=== PATIENT | female | born 1950 | race Caucasian/White ===

== ENCOUNTER → 2018-12-04 | Outpatient (CLI) | payer MEDICARE, OTHER ==
[2018-12-04 11:11] LABS: Source, Urine Clean Catch
[2018-12-04 11:19] LABS: Appearance, Urine Hazy (Clear); Bilirubin, Urine Neg (Neg); Blood, Urine Neg (Neg); Color, Urine Yellow (P-Yellow); Glucose Qualitative, Urine Neg (Neg); Ketones, Urine Neg (Neg); Leukocyte Esterase, Urine 3+ (Neg); Nitrite, Urine Neg (Neg); Protein, Urine Neg (Neg); Urobilinogen, Urine NORM (Normal)
[2018-12-04 11:35] LABS: Bacteria Mod /hpf; Calcium Oxalate Crystals Mod /hpf; Red Blood Cells, Urine 0-2 /hpf (0-2); Squamous Epithelial Cells Few /hpf (Few)
== END ==
LOC: LAB SHORT 03:50 → LAB 03:50
PROVIDERS: Physician Assistant Medical
DX: N39.0 Urinary tract infection, site not specified (principal)
CPT/HCPCS: 81001; 87086

== ENCOUNTER → 2019-01-08 | Outpatient (CLI) | payer MEDICARE, OTHER ==
[2019-01-08 20:06] LABS: Source, Urine Clean Catch
[2019-01-08 20:29] LABS: Bilirubin, Urine Neg (Neg); Blood, Urine 3+ (Neg); Glucose Qualitative, Urine Neg (Neg); Ketones, Urine Neg (Neg); Leukocyte Esterase, Urine 3+ (Neg); Nitrite, Urine Neg (Neg); Protein, Urine Neg (Neg); Urobilinogen, Urine NORM (Normal)
[2019-01-08 20:59] LABS: Appearance, Urine Hazy (Clear); Color, Urine Yellow (P-Yellow)
[2019-01-08 21:00] LABS: Bacteria Few /hpf; Red Blood Cells, Urine 0-2 /hpf (0-2); Squamous Epithelial Cells Few /hpf (Few); White Blood Cells, Urine TNTC /hpf (0-5)
== END ==
LOC: LAB 16:35 → LAB SHORT 16:35
PROVIDERS: Physician Assistant Medical
DX: N39.0 Urinary tract infection, site not specified (principal)
CPT/HCPCS: 81001; 87086

== ENCOUNTER 2021-01-05 12:26 | Inpatient (IN) | payer MEDICARE, OTHER ==
[~2021-01-05] VITALS: Ht 167.6 cm; Wt 79.6 kg
[2021-01-05 13:12] LABS: BASOPHILS ABSOLUTE AUTO 0.05 K/mm3 (0.00-0.23); BASOPHILS PERCENT AUTO 0 % (0-2); EOSINOPHILS ABSOLUTE AUTO 0.01 K/mm3 (0.00-0.68); EOSINOPHILS PERCENT AUTO 0 % (0-6); Hematocrit 29.9 % (33.0-51.0); Hemoglobin 9.7 g/dL (11.5-16.0); IMMATURE GRAN ABSOLUTE AUTO 0.23 K/mm3 (0.00-0.10); IMMATURE GRAN PERCENT AUTO 1 % (0-1); LYMPHOCYTES PERCENT AUTO 9 % (21-46); MONOCYTES ABSOLUTE AUTO 1.41 K/mm3 (0.16-1.47); MONOCYTES PERCENT AUTO 9 % (4-13); Mean Corpuscular HGB 29.6 pg (26.0-34.0); Mean Corpuscular HGB Conc 32.4 g/dL (31.5-36.5); Mean Corpuscular Volume 91 fL (80-100); NEUTROPHILS ABSOLUTE AUTO 13.06 K/mm3 (1.96-9.15); NEUTROPHILS PERCENT AUTO 80 % (41-73); RDW Coefficient Variation 12.3 % (11.7-14.2); RDW Standard Deviation 41.4 fL (35.1-46.3); Red Blood Cell Count 3.28 M/mm3 (3.80-5.20); White Blood Cell Count 16.26 K/mm3 (4.00-11.30)
[2021-01-05 13:15] LABS: Mean Platelet Volume 9.1 fL (9.1-12.4); Platelet Count 361 K/mm3 (150-400)
[2021-01-05 13:16] LABS: Alanine Aminotransfer (ALT/SGP 26 U/L (12-78); Albumin, Blood 2.4 g/dL (3.4-5.0); Albumin/Globulin Ratio 0.5 (0.8-1.8); Alk Phos 104 U/L (50-136); Anion Gap 6 mmol/L (6-16); Aspartate Aminotrans (AST/SGOT 24 U/L (12-37); Bilirubin, Total 0.4 mg/dL (0.1-1.0); Blood Urea Nitrogen 12 mg/dL (8-24); Bun/Creatinine Ratio 17.9 (12.0-20.0); CO2, Blood 23 mmol/L (21-32); CPK Creatine Kinase 69 U/L (26-193); Calcium, Blood 8.9 mg/dL (8.5-10.1); Chloride, Blood 113 mmol/L (98-108); Creatinine, Blood 0.67 mg/dL (0.40-1.00); Globulin, Blood 5.1 g/dL (2.2-4.0); Glomerular Filtration Rate >60 (60-); Glucose, Blood 126 mg/dL (70-99); Potassium, Blood 3.3 mmol/L (3.5-5.5); Sodium, Blood 142 mmol/L (136-145); Total Protein, Blood 7.5 g/dL (6.4-8.2); Troponin I <0.015 ng/mL (0.000-0.040)
[2021-01-05 14:11] LABS: Influenza A, PCR Negative (NEGATIVE); Influenza B, PCR Negative (NEGATIVE); Resp Syncytial Virus, PCR Negative (NEGATIVE); SARS-Cov-2 (COVID-19) PCR, MMC Negative (NEGATIVE)
[2021-01-05 14:32] LABS: Source, Urine Catheter
[2021-01-05 15:00] LABS: Appearance, Urine Turbid (Clear); Color, Urine Amber (P-Yellow)
[2021-01-05 15:01] LABS: Bacteria Many /hpf
[2021-01-05 15:04] LABS: Squamous Epithelial Cells Rare /hpf (Few); White Blood Cells, Urine TNTC /hpf (0-5)
[2021-01-05] MEDS ORDERED: Aspir 8181 MG PO (16:27)
[2021-01-05] MEDS ORDERED: OMEP20ER PO (16:27)
[2021-01-05] MEDS ORDERED: Prozac20 MG PO (16:28)
[2021-01-05] MEDS ORDERED: DONE5 PO (16:28)
[2021-01-05] MEDS ORDERED: QUET100 PO (16:29)
[2021-01-05] MEDS ORDERED: CLON.5 PO (16:29)
[2021-01-05] MEDS ORDERED: MELA3 PO (16:32)
[2021-01-05] MEDS ORDERED: QUET200 PO (16:32)
[2021-01-05] MEDS ORDERED: ATOR40TA PO (16:32)
[2021-01-05] MEDS ORDERED: OLAN10 PO (16:33)
[2021-01-05 17:03] LABS: Prolactin 33.3 ng/mL (2.74-19.64)
[2021-01-05 17:38] LABS: Candida species (DNA Probe) Negative (NEGATIVE); G. vaginalis (DNA Probe) Negative (NEGATIVE); T. vaginalis (DNA Probe) Negative (NEGATIVE)
--- NOTE | 2021-01-05 18:30 | NUR ---
SUMMARY PT ARRIVED FROM THE ER VIA [facility], PT FROM [facility], HAS DEMENTIA, DOES NOT FOLLOW COMMANDS, SPEECH IS NONSENSICAL, PT'S R INNER THIGH AND LABIA IS RED, HARD, AND WARM TO THE TOUCH, SURGERY CONSULT, PT NPO AFTER MIDNIGHT, POSSIBLE I AND D TOMORROW, VSS, WILL CONT TO MONITOR
[2021-01-06 05:58] LABS: BASOPHILS ABSOLUTE AUTO 0.04 K/mm3 (0.00-0.23); BASOPHILS PERCENT AUTO 0 % (0-2); EOSINOPHILS ABSOLUTE AUTO 0.02 K/mm3 (0.00-0.68); EOSINOPHILS PERCENT AUTO 0 % (0-6); IMMATURE GRAN ABSOLUTE AUTO 0.16 K/mm3 (0.00-0.10); IMMATURE GRAN PERCENT AUTO 1 % (0-1); LYMPHOCYTES ABSOLUTE AUTO 1.74 K/mm3 (0.84-5.20); LYMPHOCYTES PERCENT AUTO 10 % (21-46); MONOCYTES ABSOLUTE AUTO 1.32 K/mm3 (0.16-1.47); MONOCYTES PERCENT AUTO 8 % (4-13); Mean Corpuscular HGB 28.8 pg (26.0-34.0); Mean Corpuscular HGB Conc 32.1 g/dL (31.5-36.5); Mean Corpuscular Volume 90 fL (80-100); NEUTROPHILS ABSOLUTE AUTO 13.47 K/mm3 (1.96-9.15); NEUTROPHILS PERCENT AUTO 80 % (41-73); Platelet Count 404 K/mm3 (150-400); RDW Coefficient Variation 12.5 % (11.7-14.2); RDW Standard Deviation 40.8 fL (35.1-46.3); Red Blood Cell Count 3.12 M/mm3 (3.80-5.20); White Blood Cell Count 16.75 K/mm3 (4.00-11.30)
[2021-01-06 06:24] LABS: Alanine Aminotransfer (ALT/SGP 23 U/L (12-78); Albumin, Blood 2.1 g/dL (3.4-5.0); Albumin/Globulin Ratio 0.4 (0.8-1.8); Alk Phos 89 U/L (50-136); Anion Gap 7 mmol/L (6-16); Aspartate Aminotrans (AST/SGOT 27 U/L (12-37); Bilirubin, Total 0.5 mg/dL (0.1-1.0); Blood Urea Nitrogen 10 mg/dL (8-24); Bun/Creatinine Ratio 14.5 (12.0-20.0); CO2, Blood 22 mmol/L (21-32); Calcium, Blood 8.7 mg/dL (8.5-10.1); Chloride, Blood 114 mmol/L (98-108); Creatinine, Blood 0.69 mg/dL (0.40-1.00); Globulin, Blood 4.7 g/dL (2.2-4.0); Glomerular Filtration Rate >60 (60-); Glucose, Blood 115 mg/dL (70-99); Potassium, Blood 3.4 mmol/L (3.5-5.5); Sodium, Blood 143 mmol/L (136-145); Total Protein, Blood 6.8 g/dL (6.4-8.2)
--- NOTE | 2021-01-06 07:23 | NUR ---
SANITATION WORKER SUMMARY Cesilia was awake most of the night crying loudly. She was only indicative of discomfort during gentle brief changes. She has been NPO since before 2400 as she would turn away from nutrition or fluid when offered. Awaiting I&D later today.
--- NOTE | 2021-01-06 12:08 | NUR ---
NURSES NOTE PATIENT LEAVING FLOOR TO SURGERY
--- NOTE | 2021-01-06 13:09 | NUR ---
PT WAS HERE TO DAYSURGERY BY [facility]. PT AWAKE, MOANING OFF AND ON. PT REPORTED FROM OTHER STAFF TO BE NPO, AND THAT LOVENOX WAS HELD TODAY. PT LS CLEAR. PT WITH HX OF DEMENTIA. FLOOR STAFF REPORTED THAT PT HAS NOONE TO SIGN FOR HER, PT HAS 2 MD SIGN. TRUDY AREA SHAVED AND WIPED WITH OTHER RN PRESENT.
--- NOTE | 2021-01-06 13:10 | NUR ---
01/06/21 1310 Ruben Hernandez [address] 0900
--- NOTE | 2021-01-06 14:59 | NUR ---
NURSE NOTE PT RETURNED FROM SURGERY RESTING QUIETLY. INCISION SITE HAS NAYLA DRAIN WITH BLOODY DRAINAGE PRESENT ON GAUZE DRESSING. TELE MONITOR HOOKED BACK UP.
--- NOTE | 2021-01-06 17:30 | NUR ---
SHIFT SUMMARY PATIENT IS CURRENTLY RESTING AFTER RETURNING FROM SURGERY. PRIOR TO GOING TO SURGERY PATIENT WAS UNABLE TO ANSWER QUESTIONS OR FOLLOW COMMANDS AND WOULD CRY OUT FREQUENTLY. ONLY LEFT EYE WOULD OPEN. PT HAS BEEN NPO SINCE MIDNIGHT AND WENT TO SURGERY TODAY FOR RIGHT GROIN I&D. NAYLA DRAIN AND GAUZE/ABD DRESSING IN PLACE. PATIENT O2 SAT AT 89% UPON RETURNING FROM SURGERY. PLACED 2L NC. BOARD WINDER IS IN PLACE. VS STABLE. WILL CONTINUE TO MONITOR.
[2021-01-07 04:10] LABS: CHLAMYDIA TRACHOMATIS, NAA Negative (Negative)
--- NOTE | 2021-01-07 04:12 | NUR ---
PATIENT JUST WOKE UP FROM SURGERY. UNABLE TO ANSWER PLACE, MONTH, OR YEAR. CONFUSED. HX OF DEMENTIA. EYES OPEN AND ON 2L O2 NC. NS INFUSING AT 125mL/HR. BED ALARM. WCTM.
--- NOTE | 2021-01-07 04:16 | NUR ---
SHIFT SUMMARY PATIENT LETHARGIC THROUGHOUT SHIFT FROM SURGERY. PO MEDICATION HELD. PATIENT NOW WAKING UP AND UNABLE TO ANSWER PLACE, DATE, MONTH, OR YEAR. HX DEMENTIA. PIVS REMAIN INTACT. NS INFUSING AT 125mL/HR. LICENSING REPRESENTATIVE REPORTS SB 56. ON 2L O2 NC AND RA BASELINE. VSS/AFEBRILE. NO S/SX OF PAIN, SOB, AND N/V. NAYLA DRAIN AND GAUZE/ABD DRESSING IN PLACE. CALL LIGHT IN REACH. BED IN LOWEST POSITION AND ALARM ACTIVATED. WILL CONTINUE TO MONITOR UNTIL DAY SHIFT NURSE ASSUMES CARE.
[2021-01-07 05:22] LABS: BASOPHILS ABSOLUTE AUTO 0.02 K/mm3 (0.00-0.23); BASOPHILS PERCENT AUTO 0 % (0-2); EOSINOPHILS PERCENT AUTO 0 % (0-6); Hematocrit 29.2 % (33.0-51.0); Hemoglobin 9.7 g/dL (11.5-16.0); IMMATURE GRAN ABSOLUTE AUTO 0.17 K/mm3 (0.00-0.10); IMMATURE GRAN PERCENT AUTO 1 % (0-1); LYMPHOCYTES ABSOLUTE AUTO 1.08 K/mm3 (0.84-5.20); LYMPHOCYTES PERCENT AUTO 6 % (21-46); MONOCYTES ABSOLUTE AUTO 0.45 K/mm3 (0.16-1.47); MONOCYTES PERCENT AUTO 3 % (4-13); Mean Corpuscular HGB 29.2 pg (26.0-34.0); Mean Corpuscular HGB Conc 33.2 g/dL (31.5-36.5); Mean Corpuscular Volume 88 fL (80-100); Mean Platelet Volume 9.2 fL (9.1-12.4); NEUTROPHILS ABSOLUTE AUTO 15.27 K/mm3 (1.96-9.15); NEUTROPHILS PERCENT AUTO 90 % (41-73); Platelet Count 374 K/mm3 (150-400); RDW Coefficient Variation 12.2 % (11.7-14.2); RDW Standard Deviation 39.5 fL (35.1-46.3); Red Blood Cell Count 3.32 M/mm3 (3.80-5.20); White Blood Cell Count 16.99 K/mm3 (4.00-11.30)
[2021-01-07 05:45] LABS: Anion Gap 8 mmol/L (6-16); Blood Urea Nitrogen 16 mg/dL (8-24); Bun/Creatinine Ratio 27.5 (12.0-20.0); CO2, Blood 19 mmol/L (21-32); Calcium, Blood 8.5 mg/dL (8.5-10.1); Chloride, Blood 117 mmol/L (98-108); Creatinine, Blood 0.58 mg/dL (0.40-1.00); Glomerular Filtration Rate >60 (60-); Glucose, Blood 130 mg/dL (70-99); Potassium, Blood 3.9 mmol/L (3.5-5.5); Sodium, Blood 144 mmol/L (136-145)
--- NOTE | 2021-01-07 18:17 | NUR ---
PT HAVING DIFFICULTY CHEWING REGULAR DIET FOOD ITEMS. CHANGED DIET TO A [facility] SOFT BITE SIZE DIET FOR EASE OF CHEWING. PT DOES NOT HAVE DENTURES. PT SWALLOWING WITHOUT DIFFICULTY.
--- NOTE | 2021-01-07 18:45 | NUR ---
SHIFT SUMMARY: PT ALERT T/OUT DAY, BUT UNABLE TO ASSESS ORIENTATION. PT DOES NOT RESPOND TO QUESTIONS APPROP. PT HAVING PAIN WITH POSITIONING AND ATTENDS CHANGES. PT GIVEN IV FENTANYL FOR HER PAIN. ALSO STARTED PO TYLENOL AND ADVIL TO ATTEMPT TO GET PAIN UNDER CONTROL ITH PO MEDICATIONS. R GROIN I&D SITE IS DRAINING SEROSANGUINEOUS DRAINAGE. NO SIGNS OF INFECTION OTHER THAN FOUL SMELLING DRAINAGE. SUTURES AND DRAIN TUBE IN PLACE. PT EATING WELL AND TAKING MEDICATIONS WELL.
--- NOTE | 2021-01-08 04:32 | NUR ---
SHIFT SUMMARY PATIENT HAD NO ACUTE CHANGES OBSERVED. ALERT TO SELF. TAKES MEDS CRUSHED IN APPLESAUCE. BEDREST AND ON ROOM AIR. PIV REMAINS INTACT. NS INFUSING AT 125mL/HR. DENIES PAIN, SOB, AND N/V. VSS/AFEBRILE. NAYLA DRAIN AND SUTURES IN PLACE. NO CRYING EVENTS THIS SHIFT. PATIENT SLEPT MOST OF THE SHIFT. CALL LIGHT IN REACH. BED IN LOWEST POSITION AND ALARM ACTIVATED. WILL CONTINUE TO MONITOR UNTIL DAY SHIFT NURSE ASSUMES CARE.
[2021-01-08 05:03] LABS: BASOPHILS ABSOLUTE AUTO 0.02 K/mm3 (0.00-0.23); BASOPHILS PERCENT AUTO 0 % (0-2); EOSINOPHILS ABSOLUTE AUTO 0.03 K/mm3 (0.00-0.68); EOSINOPHILS PERCENT AUTO 0 % (0-6); Hemoglobin 8.3 g/dL (11.5-16.0); IMMATURE GRAN ABSOLUTE AUTO 0.11 K/mm3 (0.00-0.10); IMMATURE GRAN PERCENT AUTO 1 % (0-1); LYMPHOCYTES ABSOLUTE AUTO 1.54 K/mm3 (0.84-5.20); LYMPHOCYTES PERCENT AUTO 17 % (21-46); MONOCYTES ABSOLUTE AUTO 0.43 K/mm3 (0.16-1.47); MONOCYTES PERCENT AUTO 5 % (4-13); Mean Corpuscular HGB 29.5 pg (26.0-34.0); Mean Corpuscular HGB Conc 31.9 g/dL (31.5-36.5); Mean Platelet Volume 9.1 fL (9.1-12.4); NEUTROPHILS ABSOLUTE AUTO 7.03 K/mm3 (1.96-9.15); NEUTROPHILS PERCENT AUTO 77 % (41-73); Platelet Count 348 K/mm3 (150-400); RDW Coefficient Variation 12.4 % (11.7-14.2); RDW Standard Deviation 42.3 fL (35.1-46.3); Red Blood Cell Count 2.81 M/mm3 (3.80-5.20); White Blood Cell Count 9.16 K/mm3 (4.00-11.30)
[2021-01-08 05:04] LABS: Mean Corpuscular Volume 93 fL (80-100)
[2021-01-08 06:20] LABS: Anion Gap 5 mmol/L (6-16); Blood Urea Nitrogen 25 mg/dL (8-24); Bun/Creatinine Ratio 37.1 (12.0-20.0); CO2, Blood 20 mmol/L (21-32); Calcium, Blood 8.2 mg/dL (8.5-10.1); Chloride, Blood 120 mmol/L (98-108); Creatinine, Blood 0.67 mg/dL (0.40-1.00); Glomerular Filtration Rate >60 (60-); Glucose, Blood 102 mg/dL (70-99); Potassium, Blood 3.5 mmol/L (3.5-5.5); Sodium, Blood 145 mmol/L (136-145)
--- NOTE | 2021-01-08 13:41 | NUR ---
R GROIN FIRMNESS. SPOKE WITH DR. ANDRADE ABOUT THE FIRMNESS FELT AROUND PTS R GROIN. NAYLA DRAIN IS STILL DRAINING. FIRMNESS EXTENDS TO THE R SIDE OF THE PUBIC AREA. PT C/O PAIN WHEN IT IS TOUCHED. DR. ANDRADE REORDERED FLAGYL IV. NOTIFICATION OF UNABILITY TO CRUSH EC ASPRIN WAS RELAYED ALSO AND BABY ASPRIN WAS ORDERED IN REPLACEMENT.
--- NOTE | 2021-01-08 17:38 | NUR ---
Pt yelling out and painfull. period of confussion and delirium. Review of pt with nursing. Will contact care managers. pt did not have any paperwork from [facility]. Need to find decision maker or guardian for plan of care.
--- NOTE | 2021-01-08 18:13 | NUR ---
SHIFT SUMMARY PT SLEPT MOST OF THE SHIFT. NOON DOSE OF SEROQUEL WAS HELD DUE TO LETHARGY. PT WOKE UP AROUND 1500 AND WAS PLEASANT/HAPPY IN ROOM. ATE & DRANK LITTLE AMOUNTS TODAY. ENSURE WAS ENCOURAGED. AT 1630 PT STARTED CRYING UNCONSOLABLY. DR. ABERNATHY WAS NOTIFIED & A ONE TIME 0.5 DOSE OF ATIVAN WAS ORDERED. PT MEDICATED WITH THIS AND FOR PAIN AND IS NOW RESTING. MODERATE DRAINAGE OUT OF NAYLA DRAIN TODAY. R GROIN CONTINUES TO BE VERY FIRM AND PAINFUL TO PT. DR. ANDRADE AWARE. NO OTHER ACUTE CHANGES IN ASSESSMENT THIS TIME. VS REVIEWED. BED ALARM ON.
--- NOTE | 2021-01-09 04:16 | NUR ---
SHIFT SUMMARY PATIENT HAD NO ACUTE CHANGES OBSERVED. IN BED RESTING, SELF TALKING T/O SHIFT. ALERT TO SELF AND BEDREST. TAKES MEDICATION CRUSHED IN APPLESAUCE. NO CRYING EVENTS. PIV REMAINS INTACT. IV ABX INFUSED. TYLENOL 650 MG GIVEN FOR RS GROIN PAIN. VSS/AFEBRILE. DENIES SOB AND N/V. NAYLA DRAIN AND SUTURES INTACT. CALL LIGHT IN REACH. BED IN LOWEST POSITION AND ALARM ACTIVATED. WILL CONTINUE TO MONITOR UNTIL DAY SHIFT NURSE ASSUMES CARE.
[2021-01-09 05:11] LABS: BASOPHILS ABSOLUTE AUTO 0.04 K/mm3 (0.00-0.23); BASOPHILS PERCENT AUTO 1 % (0-2); EOSINOPHILS ABSOLUTE AUTO 0.21 K/mm3 (0.00-0.68); EOSINOPHILS PERCENT AUTO 3 % (0-6); Hematocrit 25.9 % (33.0-51.0); Hemoglobin 8.5 g/dL (11.5-16.0); IMMATURE GRAN PERCENT AUTO 1 % (0-1); LYMPHOCYTES ABSOLUTE AUTO 1.72 K/mm3 (0.84-5.20); LYMPHOCYTES PERCENT AUTO 22 % (21-46); MONOCYTES ABSOLUTE AUTO 0.49 K/mm3 (0.16-1.47); MONOCYTES PERCENT AUTO 6 % (4-13); Mean Corpuscular HGB 29.2 pg (26.0-34.0); Mean Corpuscular HGB Conc 32.8 g/dL (31.5-36.5); Mean Corpuscular Volume 89 fL (80-100); Mean Platelet Volume 8.9 fL (9.1-12.4); NEUTROPHILS PERCENT AUTO 67 % (41-73); Platelet Count 385 K/mm3 (150-400); RDW Coefficient Variation 12.4 % (11.7-14.2); RDW Standard Deviation 40.4 fL (35.1-46.3); Red Blood Cell Count 2.91 M/mm3 (3.80-5.20); White Blood Cell Count 7.86 K/mm3 (4.00-11.30)
[2021-01-09 05:45] LABS: Alanine Aminotransfer (ALT/SGP 43 U/L (12-78); Albumin, Blood 1.8 g/dL (3.4-5.0); Albumin/Globulin Ratio 0.4 (0.8-1.8); Alk Phos 64 U/L (50-136); Anion Gap 6 mmol/L (6-16); Aspartate Aminotrans (AST/SGOT 36 U/L (12-37); Bilirubin, Total 0.2 mg/dL (0.1-1.0); Blood Urea Nitrogen 20 mg/dL (8-24); Bun/Creatinine Ratio 34.4 (12.0-20.0); CO2, Blood 23 mmol/L (21-32); Calcium, Blood 8.1 mg/dL (8.5-10.1); Chloride, Blood 118 mmol/L (98-108); Creatinine, Blood 0.58 mg/dL (0.40-1.00); Globulin, Blood 4.1 g/dL (2.2-4.0); Glomerular Filtration Rate >60 (60-); Glucose, Blood 88 mg/dL (70-99); Potassium, Blood 3.2 mmol/L (3.5-5.5); Sodium, Blood 147 mmol/L (136-145); Total Protein, Blood 5.9 g/dL (6.4-8.2); Vancomycin, Trough 6.4 ug/mL (5.0-10.0)
[2021-01-09] MEDS ORDERED: BANATROL PLUS1 EAC1 PO (13:17)
[2021-01-09] MEDS ORDERED: BISA10S PR (13:18)
[2021-01-09] MEDS ORDERED: IBUP600 PO (13:18)
[2021-01-09] MEDS ORDERED: AMOCLA875 PO (13:19)
--- NOTE | 2021-01-09 13:45 | NUR ---
REPORT GIVEN TO MONICA [facility]ASPER BANTRYDINORA. PT TO BE TRANSPORTED VIA [facility] AROUND 215
== END 2021-01-09 17:05 | disposition home or self-care (01) | DRG 854 ==
LOC: ER 12:26 → MEDS 16:11 → ENPENDDIS 01-09 12:24 → MEDS 01-09 17:05
PROVIDERS: Emergency Medicine; Pharmacist; Surgery; ADMIT Family Medicine
PROC: 0Y9500Z Drainage of Right Inguinal Region with Drainage Device, Open Approach (ICD-10-PCS; principal; 2021-01-06 12:30)
DX: A41.9 Sepsis, unspecified organism (principal); L02.214 Cutaneous abscess of groin; N30.00 Acute cystitis without hematuria; L03.314 Cellulitis of groin; Z20.822 Contact with and (suspected) exposure to COVID-19; R56.9 Unspecified convulsions; E87.6 Hypokalemia; B95.4 Other streptococcus as the cause of diseases classified elsewhere; F03.90 Unspecified dementia, unspecified severity, without behavioral disturbance, psychotic disturbance, mood disturbance, and anxiety; Z88.5 Allergy status to narcotic agent; Z79.82 Long term (current) use of aspirin; Z79.899 Other long term (current) drug therapy
CPT/HCPCS: 0241U; 36415; 51701; 70450; 71045; 72193; 80048; 80053; 80202; 81001; 82550; 82947; 83605; 83735; 84146; 84484; 85025; 87040; 87070; 87075; 87086; 87205; 87480; 87491; 87510; 87591; 87660; 93005; 93010; 96365; 96375; 99285-25; A9270; J0696; J1100; J1650; J2060; J2405; J2704; J3010; J3370; J3480; J7030; J7050; J7120; Q9967

== ENCOUNTER 2021-01-21 14:50 | Emergency (ER) | payer MEDICARE, OTHER ==
[~2021-01-21] VITALS: Ht 165.1 cm; Wt 77.1 kg
[~2021-01-21 14:50] MED LIST: AMOCLA875 PO; ATOR40TA PO; Aspir 8181 MG PO; BANATROL PLUS1 EAC1 PO; BISA10S PR; CLON.5 PO; DONE5 PO; IBUP600 PO; MELA3 PO; OLAN10 PO; OMEP20ER PO; Prozac20 MG PO; QUET100 PO; QUET200 PO
[2021-01-21 16:12] LABS: BASOPHILS ABSOLUTE AUTO 0.05 K/mm3 (0.00-0.23); IMMATURE GRAN ABSOLUTE AUTO 0.02 K/mm3 (0.00-0.10); IMMATURE GRAN PERCENT AUTO 0 % (0-1); MONOCYTES PERCENT AUTO 10 % (4-13)
[2021-01-21 16:21] LABS: Alanine Aminotransfer (ALT/SGP 38 U/L (12-78); Albumin/Globulin Ratio 0.6 (0.8-1.8); Alk Phos 109 U/L (50-136); Anion Gap 6 mmol/L (6-16); Aspartate Aminotrans (AST/SGOT 44 U/L (12-37); Bilirubin, Total 0.3 mg/dL (0.1-1.0); Blood Urea Nitrogen 14 mg/dL (8-24); Bun/Creatinine Ratio 20.1 (12.0-20.0); CO2, Blood 24 mmol/L (21-32); Calcium, Blood 9.6 mg/dL (8.5-10.1); Chloride, Blood 109 mmol/L (98-108); Globulin, Blood 4.9 g/dL (2.2-4.0); Glomerular Filtration Rate >60 (60-); Glucose, Blood 110 mg/dL (70-99); Potassium, Blood 3.9 mmol/L (3.5-5.5); Sodium, Blood 139 mmol/L (136-145); Total Protein, Blood 7.9 g/dL (6.4-8.2)
[2021-01-21 16:23] LABS: BASOPHILS PERCENT AUTO 1 % (0-2); EOSINOPHILS ABSOLUTE AUTO 0.08 K/mm3 (0.00-0.68); EOSINOPHILS PERCENT AUTO 1 % (0-6); Hematocrit 33.9 % (33.0-51.0); Hemoglobin 11.3 g/dL (11.5-16.0); LYMPHOCYTES PERCENT AUTO 32 % (21-46); MONOCYTES ABSOLUTE AUTO 0.62 K/mm3 (0.16-1.47); Mean Corpuscular HGB Conc 33.3 g/dL (31.5-36.5); Mean Corpuscular Volume 87 fL (80-100); NEUTROPHILS ABSOLUTE AUTO 3.36 K/mm3 (1.96-9.15); NEUTROPHILS PERCENT AUTO 56 % (41-73); RDW Coefficient Variation 13.8 % (11.7-14.2); White Blood Cell Count 6.03 K/mm3 (4.00-11.30)
[2021-01-21 16:27] LABS: Mean Platelet Volume 9.9 fL (9.1-12.4); Platelet Count 318 K/mm3 (150-400)
== END 2021-01-21 17:28 ==
LOC: ER 14:50
PROVIDERS: Physician Assistant
DX: Z48.817 Encounter for surgical aftercare following surgery on the skin and subcutaneous tissue (principal); Z88.5 Allergy status to narcotic agent; Z79.899 Other long term (current) drug therapy; Z79.82 Long term (current) use of aspirin; F03.90 Unspecified dementia, unspecified severity, without behavioral disturbance, psychotic disturbance, mood disturbance, and anxiety
CPT/HCPCS: 36415; 74176; 80053; 83690; 85025; 99284-25

== ENCOUNTER 2021-09-07 14:18 | Emergency (ER) | payer MEDICARE, OTHER ==
[~2021-09-07] VITALS: Ht 165.1 cm; Wt 79.4 kg
[2021-09-07] MEDS ORDERED: ACET325 PO (14:36)
[2021-09-07] MEDS ORDERED: IBUP400 PO (14:38)
[2021-09-07] MEDS ORDERED: BACL10 PO (14:42)
[2021-09-07] MEDS ORDERED: TRAM50 PO (14:43)
== END 2021-09-07 17:55 | disposition home or self-care (01) ==
LOC: ER 14:18
DX: S09.90XA Unspecified injury of head, initial encounter (principal); K21.9 Gastro-esophageal reflux disease without esophagitis; I10 Essential (primary) hypertension; Z88.5 Allergy status to narcotic agent; Z79.82 Long term (current) use of aspirin; Z91.81 History of falling; Z79.899 Other long term (current) drug therapy; W08.XXXA Fall from other furniture, initial encounter
CPT/HCPCS: 70450; 72125

== ENCOUNTER 2022-06-07 11:08 | Inpatient (IN) | payer MEDICARE, OTHER ==
[~2022-06-07] VITALS: Ht 165.1 cm; Wt 68.5 kg
[~2022-06-07 11:08] MED LIST changes: +ACET325 PO; +BACL10 PO; +IBUP400 PO; +TRAM50 PO
[2022-06-07] MEDS ORDERED: FERSU300 PO (11:20)
[2022-06-07] MEDS ORDERED: MIRALAX11910 PO (11:20)
[2022-06-07] MEDS ORDERED: LOPE2C PO (11:23)
[2022-06-07] MEDS ORDERED: DULCOLAX400 MG/5 M PO (11:24)
[2022-06-07 11:53] LABS: BASOPHILS ABSOLUTE AUTO 0.08 K/mm3 (0.00-0.23); BASOPHILS PERCENT AUTO 0 % (0-2); EOSINOPHILS PERCENT AUTO 1 % (0-6); Hematocrit 30.4 % (33.0-51.0); Hemoglobin 10.2 g/dL (11.5-16.0); IMMATURE GRAN ABSOLUTE AUTO 0.21 K/mm3 (0.00-0.10); IMMATURE GRAN PERCENT AUTO 1 % (0-1); LYMPHOCYTES ABSOLUTE AUTO 1.34 K/mm3 (0.84-5.20); LYMPHOCYTES PERCENT AUTO 6 % (21-46); MONOCYTES ABSOLUTE AUTO 1.06 K/mm3 (0.16-1.47); MONOCYTES PERCENT AUTO 5 % (4-13); Mean Corpuscular HGB 29.5 pg (26.0-34.0); Mean Corpuscular HGB Conc 33.6 g/dL (31.5-36.5); Mean Corpuscular Volume 88 fL (80-100); Mean Platelet Volume 8.7 fL (9.1-12.4); NEUTROPHILS ABSOLUTE AUTO 17.88 K/mm3 (1.96-9.15); NEUTROPHILS PERCENT AUTO 86 % (41-73); Platelet Count 369 K/mm3 (150-400); RDW Standard Deviation 38.5 fL (35.1-46.3); Red Blood Cell Count 3.46 M/mm3 (3.80-5.20); White Blood Cell Count 20.87 K/mm3 (4.00-11.30)
[2022-06-07 12:17] LABS: Bun/Creatinine Ratio 29.8 (12.0-20.0); C-REACTIVE PROTEIN, EXT RANGE 12.6 mg/dL (0.000-0.300); Calcium, Blood 9.3 mg/dL (8.5-10.1); Creatinine, Blood 0.77 mg/dL (0.40-1.00); Potassium, Blood 3.5 mmol/L (3.5-5.5)
[2022-06-07 12:49] LABS: Prothrombin Time Results 10.5 Sec (9.7-11.5)
--- NOTE | 2022-06-07 18:11 | NUR ---
PT BROUGHT FROM FLOOR TO DAY SURGERY FOR PROCEDURE.
[2022-06-07] MEDS ORDERED: ASPI81CH PO (18:16)
[2022-06-07] MEDS ORDERED: FERSU90EL PO (18:17)
--- NOTE | 2022-06-07 18:17 | NUR ---
PT ARRIVED TO THE UNIT. SHE HAD A BM AND WAS CLEANED. HER ABCESS RUPTURED AND WAS DRAINING. SHE WAS TAKEN TO THE OR FOR AN I/D
[2022-06-07] MEDS ORDERED: CLON.5 PO (18:19)
--- NOTE | 2022-06-07 18:20 | NUR ---
PT HAS 20G IV IN RIGHT FOREARM THAT FLUSHES WELL AND FLOWS WELL TO GRAVITY.
[2022-06-07] MEDS ORDERED: NYSTATIN15 GM TOP (18:21)
--- NOTE | 2022-06-07 18:23 | NUR ---
PT IS NONVERBAL WITH SEVERE DEMENTIA PER H&P. PT APPEARS TO HAVE INTERMITTENT PAIN THAT COMES AND GOES. PT CHECKLIST COMPLETED BY PHYSICAL APPEARANCE DUE TO PT BEING NONVERBAL.
--- NOTE | 2022-06-07 20:08 | NUR ---
LATE ENTRY: BEFORE TRANSFER TO MEDICAL FLOOR, OPSITE WAS NOTED TO HAVE BLOOD TINGED SATURATED FLUFFS WITH BLOOD CLOTS. REMOVED SATURATED FLUFFS AND NEW STERILE FLUFFS WERE PLACED.
--- NOTE | 2022-06-07 20:38 | NUR ---
NURSE NOTE PT ARRIVED BACK TO ROOM FROM PACU; PT WAS NOT RESPONDING TO VERBAL STIMULI; RESPONSIVE TO PAINFUL STIMULI. STARTING POST OP VITALS; SBP 90. PT ARRIVED WITH 1000 MLS LR INFUSING GRAVITY FEED--THIS MED APPEARS TO HAVE BEEN SCANNED UNDER WRONG ORDER. ADMIN NEW BAG OF LR AT 125MLS HR. PT IS SATURATING VAGINAL WOUND DRESSING WITH DRAINAGE AND URINE; NEW ORDER FOR GAVIN TO KEEP WOUND CLEAN.
[2022-06-07 23:18] LABS: Source, Urine Foley catheter
[2022-06-07 23:20] LABS: Bilirubin, Urine Neg (Neg); Blood, Urine Neg (Neg); Glucose Qualitative, Urine Neg (Neg); Ketones, Urine Neg (Neg); Leukocyte Esterase, Urine Neg (Neg); Nitrite, Urine Neg (Neg); Protein, Urine 1+ (Neg); Specific Gravity, Urine 1.015 (1.003-1.022); Urobilinogen, Urine NORM (Normal)
[2022-06-07 23:33] LABS: Appearance, Urine Clear (Clear); Color, Urine Yellow (P-Yellow)
[2022-06-08 05:42] LABS: BASOPHILS ABSOLUTE AUTO 0.02 K/mm3 (0.00-0.23); BASOPHILS PERCENT AUTO 0 % (0-2); EOSINOPHILS PERCENT AUTO 0 % (0-6); Hematocrit 24.9 % (33.0-51.0); Hemoglobin 8.4 g/dL (11.5-16.0); IMMATURE GRAN ABSOLUTE AUTO 0.19 K/mm3 (0.00-0.10); IMMATURE GRAN PERCENT AUTO 1 % (0-1); LYMPHOCYTES ABSOLUTE AUTO 0.78 K/mm3 (0.84-5.20); LYMPHOCYTES PERCENT AUTO 5 % (21-46); MONOCYTES ABSOLUTE AUTO 0.11 K/mm3 (0.16-1.47); MONOCYTES PERCENT AUTO 1 % (4-13); Mean Corpuscular HGB 29.9 pg (26.0-34.0); Mean Corpuscular HGB Conc 33.7 g/dL (31.5-36.5); Mean Corpuscular Volume 89 fL (80-100); Mean Platelet Volume 8.9 fL (9.1-12.4); NEUTROPHILS ABSOLUTE AUTO 13.96 K/mm3 (1.96-9.15); NEUTROPHILS PERCENT AUTO 93 % (41-73); Platelet Count 340 K/mm3 (150-400); RDW Coefficient Variation 11.9 % (11.7-14.2); Red Blood Cell Count 2.81 M/mm3 (3.80-5.20); White Blood Cell Count 15.06 K/mm3 (4.00-11.30)
[2022-06-08 06:09] LABS: Albumin, Blood 2.3 g/dL (3.4-5.0); Albumin/Globulin Ratio 0.5 (0.8-1.8); Bilirubin, Total 0.2 mg/dL (0.1-1.0); Bun/Creatinine Ratio 24.7 (12.0-20.0); Calcium, Blood 8.8 mg/dL (8.5-10.1); Creatinine, Blood 0.61 mg/dL (0.40-1.00); Globulin, Blood 4.3 g/dL (2.2-4.0); Potassium, Blood 3.7 mmol/L (3.5-5.5); Total Protein, Blood 6.6 g/dL (6.4-8.2)
--- NOTE | 2022-06-08 07:32 | NUR ---
COMPENSATION VICE PRESIDENT SUMMARY PT HAS BEEN SLEEPING AND DIFFICULT TO AROUSE T/O THE NIGHT. VSS. PT HAS OPENED EYES A FEW TIMES BUT IS NONVERBAL AT BASELINE. PT HAS [place] PACKED AROUND LABIAL ABCESS AND PINROSE DRAIN; CHANGES 2X T/O THE NIGHT WITH 80% SATURATION. DRAINAGE APPEARS TO BE MOSTLY YOUSIF BLOOD WITH SOME CLOTS. PLACED PT ON MONITOR FOR SAFTEY--IN CASE PULLING ON IV LINES OR GAVIN. PT RIGHT EYE IS RED, PUFFY, WITH DRAINAGE. BED ALARM IS SET.
--- NOTE | 2022-06-08 12:19 | NUR ---
START OF SHIFT 0730: PT IS MORE AWAKE NOW. IS BEGINNING TO GRUNT LOUDLY WITH FACIAL CONTORTION. PT IS NON VERBAL AND DOES NOT RESPOND WITH ANY MEANINGFUL RESPONSES TO ASCERTAIN THE ORIGIN OF HER GRUNTING, WHAT APPEARS TO BE A PAIN REACTION. AT 0853 MEDICATED WITH 5 MG IV MORPHINE PER EMAR WITH NO EFFECT. HER LOUD GRUNTING IS ESCALATING WITH STRONGER CONTORTIONS OF HER FACIAL EXPRESSIONS. 1135: PLACED CALL TO DR. HURD TO NOTIFY OF PT'S LOUD GRUNTING & FACIAL EXPRESSIONS. ORDERS RECEIVED FOR AN ADDITIONAL ONE TIME DOSE OF 5MG IV MORPHINE. GIVEN THOUGH AGAIN NO EFFECT. PT CONTINUES TO LOUDLY GRUNT WITH STRONG CONTORTED FACIAL EXPRESSIONS. PT MAKES NO EYE CONTACT WHEN ATTEMPTING TO ELICIT A RESPONSE. PT DOES NOT FOLLOW DIRECTIONS.
--- NOTE | 2022-06-08 12:39 | NUR ---
NAYLA DRAIN NALYA DRAIN IN PT'S LABIA/PUBIC AREA INTACT, DRAINING SEROUS DRAINAGE. 4X4 FLUFFS IN PLACE TO CATCH DRAINAGE. F/C IN PLACE DRAINING YELLOW URINE.
--- NOTE | 2022-06-08 12:45 | NUR ---
CALL TO [facility] CALL PLACED TO [facility] REGARDING PT'S BASELINE. PER STAFF AT [facility] PT YELLS OUT & GRUNTS LOUDLY WITH CONTORTED FACIAL EXPRESSIONS CONSTANTLY, IS A FEEDER, EATS A PUREED DIET & LOVES ICE CREAM.
--- NOTE | 2022-06-08 17:34 | NUR ---
DC HOME WRITTEN & VERBAL DC INSTRUCTIONS GIVEN TO PT WITH DTR AT BEDSIDE. ALL CONCERNS & QUESTIONS ANSWERED. NEW SCRIPTS FAXED TO [employer] [facility] PER PT PREFERENCE. PIV'S DC'D WITH CATH TIPS INTACT, NO REDNESS OR SWELLING NOTED. PT TO PRIVATE VEHICLE WITH CAR PAINTER VIA W/C WITH ALL PERSONAL BELONGINGS ACCOMPANIED BY DTR.
--- NOTE | 2022-06-08 18:18 | NUR ---
SHIFT SUMMARY PT CONTINUES TO SCREAM OUT FREQUENTLY. IS NON VERBAL, IS UNABLE TO FOLLOW DIRECTIONS, DOES NOT MAKE EYE CONTACT, D/T TBI, THIS IS PT'S BASELINE. 4X4 GAUZE AROUND NAYLA DRAIN REPLACED X2. DRAINAGE SEEMS TO BE SLOWING DOWN, PT IS A FEEDER, IS ON A PUREED DIET. APPETITE IS GOOD. PIV IN R FA WITH IVF'S INFUSING & IV ANTIBIOTICS SCHEDULED. VSS. F/C DRAINING YELLOW CLEAR URINE. TURNED AND REPOSITIONED WITH PILLOWS Q 2 HRS. TRUDY CARE DONE. PLAN IS LIKELY TO RETURN TO [facility] NEXT WEEK.
[2022-06-09 02:04] LABS: BASOPHILS ABSOLUTE AUTO 0.02 K/mm3 (0.00-0.23); BASOPHILS PERCENT AUTO 0 % (0-2); EOSINOPHILS ABSOLUTE AUTO 0.01 K/mm3 (0.00-0.68); EOSINOPHILS PERCENT AUTO 0 % (0-6); Hematocrit 22.1 % (33.0-51.0); Hemoglobin 7.5 g/dL (11.5-16.0); IMMATURE GRAN ABSOLUTE AUTO 0.23 K/mm3 (0.00-0.10); IMMATURE GRAN PERCENT AUTO 2 % (0-1); LYMPHOCYTES ABSOLUTE AUTO 2.15 K/mm3 (0.84-5.20); LYMPHOCYTES PERCENT AUTO 16 % (21-46); MONOCYTES ABSOLUTE AUTO 0.73 K/mm3 (0.16-1.47); MONOCYTES PERCENT AUTO 6 % (4-13); Mean Corpuscular HGB 29.5 pg (26.0-34.0); Mean Corpuscular HGB Conc 33.9 g/dL (31.5-36.5); Mean Corpuscular Volume 87 fL (80-100); Mean Platelet Volume 8.9 fL (9.1-12.4); NEUTROPHILS ABSOLUTE AUTO 10.02 K/mm3 (1.96-9.15); NEUTROPHILS PERCENT AUTO 76 % (41-73); Platelet Count 389 K/mm3 (150-400); RDW Coefficient Variation 11.9 % (11.7-14.2); RDW Standard Deviation 38.3 fL (35.1-46.3); Red Blood Cell Count 2.54 M/mm3 (3.80-5.20); White Blood Cell Count 13.16 K/mm3 (4.00-11.30)
[2022-06-09 02:22] LABS: Anion Gap 8 mmol/L (6-16); Blood Urea Nitrogen 28 mg/dL (8-24); Bun/Creatinine Ratio 28.4 (12.0-20.0); CO2, Blood 25 mmol/L (21-32); Calcium, Blood 8.5 mg/dL (8.5-10.1); Chloride, Blood 109 mmol/L (98-108); Creatinine, Blood 0.99 mg/dL (0.40-1.00); Glomerular Filtration Rate 62 (60-); Glucose, Blood 108 mg/dL (70-99); Potassium, Blood 3.3 mmol/L (3.5-5.5); Sodium, Blood 142 mmol/L (136-145); Vancomycin, Trough 23.3 ug/mL (5.0-10.0)
--- NOTE | 2022-06-09 03:39 | NUR ---
LAB c[facility] VANCOMYCIN TROUGH: 23.3 AND PHARMACY NOTIFIED. HELD 03:00 SCHEDULE DOSE.
--- NOTE | 2022-06-09 04:17 | NUR ---
SHIFT SUMMARY PATIENT HAD NO ACUTE CHANGES. ALERT TO SELF, NON-VERBAL, AND CONTINUES TO SCREAM OUT T/O SHIFT BASELINE. 4X4 GAUZE REPLACED AROUND NAYLA DRAIN. PIV REMAINS INTACT. LR INFUSING AT 125 mL/HR. DR WOOD IS UPDATING MEDICATION FROM [facility]. GAVIN PATENT AND DRAINING CLEAR YELLOW URINE TO GRAVITY. IV MORPHINE 5 MG GIVEN X ONE FOR S/SX OF PAIN. VSS/AFEBRILE. CALL LIGHT IN REACH. BED IN LOWEST POSITION AND ALARM ACTIVATED. WILL CONTINUE TO MONITOR UNTIL DAY SHIFT NURSE ASSUMES CARE.
--- NOTE | 2022-06-09 16:33 | NUR ---
SHIFT SUMMARY PT RESTING QUIETLY AT START OF SHIFT. WOKE FOR CARE TO EAT BREAKFAST AND THEN BACK TO SLEEP. PT THEN MOANING AND YELLING OUT THIS AFTERNOON. PT MEDICATED PER EMAR FOR POSSIBLE PAIN AND AGITATION. PT IS NONVERBAL AND UNABLE TO ANS QUESTIONS. IV ABX CHANGED. DRAIN SITE TO R GROIN CLEANED AND NEW DRSING'S PLACED. PT INCONTINENT OF BOWELS WITH LOOSE STOOL; MIRALAX HELD THIS AM. IVF'S INFUSING PER EMAR. PT REPOSITIONED THRU OUT SHIFT. BED ALARM ON FOR SAFETY. CALL LT IN REACH.
--- NOTE | 2022-06-10 04:03 | NUR ---
SHIFT SUMMARY PATIENT HAD NO ACUTE CHANGES. ALERT TO SELF AND NON-VERBAL. RESTED T/O SHIFT. PIVS REMAIN INTACT. IV ABX INFUSED. LR INFUSING AT 125 mL/HR. GAVIN PATENT AND DRAINING CLEAR YELLOW URINE TO GRAVITY. DRAIN SITE TO RIGHT GROIN CLEANED AND 4X4 DRESSING REPLACED. NO S/SX OF PAIN, SOB, AND N/V. VSS/AFEBRILE. CALL LIGHT IN REACH. BED IN LOWEST POSITION AND ALARM ACTIVATED. WILL CONTINUE TO MONITOR UNTIL DAY SHIFT NURSE ASSUMES CARE.
[2022-06-10 04:44] LABS: BASOPHILS ABSOLUTE AUTO 0.04 K/mm3 (0.00-0.23); BASOPHILS PERCENT AUTO 1 % (0-2); EOSINOPHILS PERCENT AUTO 3 % (0-6); Hematocrit 24.5 % (33.0-51.0); Hemoglobin 8.1 g/dL (11.5-16.0); IMMATURE GRAN ABSOLUTE AUTO 0.12 K/mm3 (0.00-0.10); IMMATURE GRAN PERCENT AUTO 2 % (0-1); LYMPHOCYTES ABSOLUTE AUTO 2.24 K/mm3 (0.84-5.20); LYMPHOCYTES PERCENT AUTO 32 % (21-46); MONOCYTES PERCENT AUTO 6 % (4-13); Mean Corpuscular HGB 29.8 pg (26.0-34.0); Mean Corpuscular HGB Conc 33.1 g/dL (31.5-36.5); Mean Corpuscular Volume 90 fL (80-100); NEUTROPHILS ABSOLUTE AUTO 4.04 K/mm3 (1.96-9.15); NEUTROPHILS PERCENT AUTO 57 % (41-73); Platelet Count 330 K/mm3 (150-400); RDW Coefficient Variation 12.1 % (11.7-14.2); RDW Standard Deviation 39.2 fL (35.1-46.3); Red Blood Cell Count 2.72 M/mm3 (3.80-5.20); White Blood Cell Count 7.04 K/mm3 (4.00-11.30)
[2022-06-10 04:55] LABS: Bun/Creatinine Ratio 26.6 (12.0-20.0); Calcium, Blood 8.1 mg/dL (8.5-10.1); Creatinine, Blood 0.79 mg/dL (0.40-1.00)
--- NOTE | 2022-06-10 15:00 | NUR ---
SHIFT SUMMARY PT RESTING QUIETLY AGAIN AT START OF SHIFT AND THRU OUT UNTIL AFTERNOON. PT SEEMS TO START YELLING OUT EVERY AFTERNOON FOR SOME REASON. BED BATH GIVEN AND LINENS CHANGED. PT TOLERATED WELL. DRSG TO R GROIN NAYLA DRAIN CHANGED AFTER SITE CLEANED. PT EATING WELL FOR BREAKFAST AND LUNCH SO FAR, BUT DOES REQUIRE FEEDING. NO VISITORS EITHER DAY THIS WEEKEND. INCONTINENT OF BOWELS; SOFT UNFORMED STOOLS. GAVIN TO GRAVITY, PATENT, DRAINING CL YELLOW URINE. MEDS TAKEN CRUSHED IN APPLESAUCE W/O DIFFICULTY. WBC'S DECREASED SIGNIFICANTLY WITH CHANGE IN ABX YESTERDAY. BED ALARM ON FOR SAFETY. CALL LT IN REACH.
[2022-06-11 04:13] LABS: Hematocrit 24.7 % (33.0-51.0); Hemoglobin 8.2 g/dL (11.5-16.0)
--- NOTE | 2022-06-11 04:44 | NUR ---
SHIFT SUMMARY PATIENT HAD NO ACUTE CHANGES. ALERT TO SELF,NON-VERBAL, AND BEDREST. PIVS REMAIN INTACT. IV ABX INFUSED. LR INFUSING AT 125 mL/HR. NO S/SX OF PAIN, SOB, AND N/V. DRAIN TO RIGHT GROIN AND 4X4 DRESSING CHANGED. GAVIN PATENT AND DRAINING TO GRAVITY. CALL LIGHT IN REACH. BED IN LOWEST POSITION. WILL CONTINUE TO MONITOR UNTIL DAY SHIFT NURSE ASSUMES CARE.
[2022-06-11] MEDS ORDERED: AMOCLA875 PO (12:59)
[2022-06-11] MEDS ORDERED: VISBIOME 112.51 EACH PO (13:00)
--- NOTE | 2022-06-11 15:23 | NUR ---
DISCHARGE PT DISCHARGED TO [facility] FOR TRANSPORT BACK [facility]. [facility] UPDATED ON PT CONDITION AND PATIENT INSTRUCTIONS PRIOR TO DC. IVS REMOVED & INTACT. PT SLEEPING PRIOR TO DC. MEDICATED FOR PAIN ONCE THIS SHIFT. NO OTHER ACUTE CHANGES IN ASSESSMENT PRIOR TO DC.
== END 2022-06-11 14:54 | disposition hospice, home (50) | DRG 580 ==
LOC: ER 11:08 → MEDS 14:07
PROVIDERS: Family Medicine; Internal Medicine; Nurse Practitioner Acute Care; Student in an Organized Health Care Education/Training Program; Surgery; ADMIT Family Medicine
PROC: 0Y950ZZ Drainage of Right Inguinal Region, Open Approach (ICD-10-PCS; principal; 2022-06-07 17:00)
PROC: 0T9B70Z Drainage of Bladder with Drainage Device, Via Natural or Artificial Opening (ICD-10-PCS; 2022-06-08)
DX: L02.214 Cutaneous abscess of groin (principal); I48.20 Chronic atrial fibrillation, unspecified; L03.115 Cellulitis of right lower limb; L02.415 Cutaneous abscess of right lower limb; L02.215 Cutaneous abscess of perineum; K21.9 Gastro-esophageal reflux disease without esophagitis; F41.9 Anxiety disorder, unspecified; D72.829 Elevated white blood cell count, unspecified; R11.0 Nausea; F03.90 Unspecified dementia, unspecified severity, without behavioral disturbance, psychotic disturbance, mood disturbance, and anxiety; D63.8 Anemia in other chronic diseases classified elsewhere; F20.9 Schizophrenia, unspecified; I10 Essential (primary) hypertension; Z88.5 Allergy status to narcotic agent; Z79.82 Long term (current) use of aspirin; Z79.899 Other long term (current) drug therapy; Z86.19 Personal history of other infectious and parasitic diseases; Z98.890 Other specified postprocedural states; Z28.21 Immunization not carried out because of patient refusal
CPT/HCPCS: 36415; 72193; 80048; 80053; 80202; 82947; 83605; 85014; 85018; 85025; 85610; 85651; 85730; 86140; 87040; 93005; 93010; 96365-59; 96375-59; 96376-59; 99285-25; A9270; C9113; J0295; J0690; J0692; J1100; J1650; J1885; J2270; J2405; J2704; J3010; J3370; J3480; J7050; J7120; Q9967

== ENCOUNTER 2022-09-14 11:33 | Emergency (ER) | payer MEDICARE, OTHER ==
[~2022-09-14] VITALS: Ht 172.7 cm; Wt 74.8 kg
[~2022-09-14 11:33] MED LIST changes: +ASPI81CH PO; +CEPH500 PO; +DULCOLAX400 MG/5 M PO; +FERSU300 PO; +FERSU90EL PO; +LOPE2C PO; +MIRALAX11910 PO; +NYSTATIN15 GM TOP; +VISBIOME 112.51 EACH PO
[2022-09-14 11:38] VITALS: BP 141/108
[2022-09-14 12:28] LABS: Source, Urine Straight Cath
[2022-09-14 12:42] LABS: Appearance, Urine Hazy (Clear); Bilirubin, Urine Neg (Neg); Blood, Urine 2+ (Neg); Glucose Qualitative, Urine Neg (Neg); Ketones, Urine Neg (Neg); Leukocyte Esterase, Urine 2+ (Neg); Nitrite, Urine Pos (Neg); Protein, Urine Neg (Neg); Urobilinogen, Urine NORM (Normal)
[2022-09-14 13:05] LABS: BASOPHILS ABSOLUTE AUTO 0.04 K/mm3 (0.00-0.23); BASOPHILS PERCENT AUTO 1 % (0-2); EOSINOPHILS PERCENT AUTO 5 % (0-6); Hematocrit 35.6 % (33.0-51.0); Hemoglobin 12.1 g/dL (11.5-16.0); IMMATURE GRAN ABSOLUTE AUTO 0.01 K/mm3 (0.00-0.10); IMMATURE GRAN PERCENT AUTO 0 % (0-1); LYMPHOCYTES ABSOLUTE AUTO 2.82 K/mm3 (0.84-5.20); LYMPHOCYTES PERCENT AUTO 48 % (21-46); MONOCYTES ABSOLUTE AUTO 0.44 K/mm3 (0.16-1.47); MONOCYTES PERCENT AUTO 8 % (4-13); Mean Corpuscular HGB 28.9 pg (26.0-34.0); Mean Corpuscular Volume 85 fL (80-100); Mean Platelet Volume 9.6 fL (9.1-12.4); NEUTROPHILS ABSOLUTE AUTO 2.23 K/mm3 (1.96-9.15); NEUTROPHILS PERCENT AUTO 38 % (41-73); Platelet Count 269 K/mm3 (150-400); RDW Coefficient Variation 12.6 % (11.7-14.2); RDW Standard Deviation 38.7 fL (35.1-46.3); Red Blood Cell Count 4.18 M/mm3 (3.80-5.20); White Blood Cell Count 5.84 K/mm3 (4.00-11.30)
[2022-09-14 13:38] LABS: Color, Urine Pale Yellow (P-Yellow)
[2022-09-14 13:43] LABS: Bacteria Many /hpf; Mucus Light (0-Heavy); Red Blood Cells, Urine 0-2 /hpf (0-2); Squamous Epithelial Cells Rare /hpf (Few)
[2022-09-14 13:52] LABS: Bilirubin, Total 0.4 mg/dL (0.1-1.0); Bun/Creatinine Ratio 27.3 (12.0-20.0); Calcium, Blood 9.7 mg/dL (8.5-10.1); Creatinine, Blood 0.84 mg/dL (0.40-1.00); Globulin, Blood 4.2 g/dL (2.2-4.0); Total Protein, Blood 8.2 g/dL (6.4-8.2)
[2022-09-14] MEDS ORDERED: CEFP200 PO (15:02)
== END 2022-09-14 16:00 | disposition home or self-care (01) ==
LOC: ER 11:33
PROVIDERS: Family Medicine
DX: N93.9 Abnormal uterine and vaginal bleeding, unspecified (principal); N39.0 Urinary tract infection, site not specified; K59.00 Constipation, unspecified; F03.90 Unspecified dementia, unspecified severity, without behavioral disturbance, psychotic disturbance, mood disturbance, and anxiety; I10 Essential (primary) hypertension; B19.20 Unspecified viral hepatitis C without hepatic coma; K21.9 Gastro-esophageal reflux disease without esophagitis; Z88.5 Allergy status to narcotic agent; Z79.82 Long term (current) use of aspirin; Z79.899 Other long term (current) drug therapy
CPT/HCPCS: 74177; 80053; 81001; 85025; 87077; 87086; 87186; 96365; 99284-25; J0696; P9612; Q9967

== ENCOUNTER 2023-03-25 14:12 | Emergency (ER) | payer MEDICARE, OTHER ==
[~2023-03-25] VITALS: Ht 170.2 cm; Wt 70.3 kg
[~2023-03-25 14:12] MED LIST changes: +CEFP200 PO
[2023-03-25 15:50] LABS: BASOPHILS ABSOLUTE AUTO 0.05 K/mm3 (0.00-0.23); BASOPHILS PERCENT AUTO 1 % (0-2); EOSINOPHILS ABSOLUTE AUTO 0.32 K/mm3 (0.00-0.68); EOSINOPHILS PERCENT AUTO 5 % (0-6); Hematocrit 35.6 % (33.0-51.0); Hemoglobin 12.4 g/dL (11.5-16.0); IMMATURE GRAN ABSOLUTE AUTO 0.01 K/mm3 (0.00-0.10); IMMATURE GRAN PERCENT AUTO 0 % (0-1); LYMPHOCYTES ABSOLUTE AUTO 2.48 K/mm3 (0.84-5.20); LYMPHOCYTES PERCENT AUTO 39 % (21-46); MONOCYTES ABSOLUTE AUTO 0.54 K/mm3 (0.16-1.47); MONOCYTES PERCENT AUTO 9 % (4-13); Mean Corpuscular HGB 29.7 pg (26.0-34.0); Mean Corpuscular HGB Conc 34.8 g/dL (31.5-36.5); Mean Corpuscular Volume 85 fL (80-100); Mean Platelet Volume 9.2 fL (9.1-12.4); NEUTROPHILS ABSOLUTE AUTO 2.95 K/mm3 (1.96-9.15); NEUTROPHILS PERCENT AUTO 46 % (41-73); Platelet Count 253 K/mm3 (150-400); RDW Coefficient Variation 12.1 % (11.7-14.2); RDW Standard Deviation 37.9 fL (35.1-46.3); Red Blood Cell Count 4.17 M/mm3 (3.80-5.20); White Blood Cell Count 6.35 K/mm3 (4.00-11.30)
[2023-03-25 17:12] LABS: Albumin, Blood 3.7 g/dL (3.4-5.0); Bilirubin, Total 0.3 mg/dL (0.1-1.0); Calcium, Blood 9.5 mg/dL (8.5-10.1); Creatinine, Blood 0.77 mg/dL (0.40-1.00); Globulin, Blood 3.8 g/dL (2.2-4.0); Potassium, Blood 4.4 mmol/L (3.5-5.5); Total Protein, Blood 7.5 g/dL (6.4-8.2)
[2023-03-25 17:30] VITALS: BP 149/114
== END 2023-03-25 19:38 | disposition home or self-care (01) ==
LOC: ER 14:12
PROVIDERS: Student in an Organized Health Care Education/Training Program
DX: S31.103A Unspecified open wound of abdominal wall, right lower quadrant without penetration into peritoneal cavity, initial encounter (principal); X58.XXXA Exposure to other specified factors, initial encounter; F03.90 Unspecified dementia, unspecified severity, without behavioral disturbance, psychotic disturbance, mood disturbance, and anxiety; I10 Essential (primary) hypertension; K21.9 Gastro-esophageal reflux disease without esophagitis; Z88.5 Allergy status to narcotic agent; Z79.899 Other long term (current) drug therapy; Z79.82 Long term (current) use of aspirin
CPT/HCPCS: 80053; 85025; 99283

== ENCOUNTER → 2023-03-26 | Outpatient (CLI) | payer MEDICARE, OTHER ==
[2023-03-27 14:02] LABS: Appearance, Urine Clear (Clear); Bilirubin, Urine Neg (Neg); Blood, Urine Neg (Neg); Color, Urine Yellow (P-Yellow); Glucose Qualitative, Urine Neg (Neg); Ketones, Urine Neg (Neg); Leukocyte Esterase, Urine Neg (Neg); Nitrite, Urine Neg (Neg); Protein, Urine Neg (Neg); Specific Gravity, Urine 1.005 (1.003-1.022); Urobilinogen, Urine NORM (Normal)
== END ==
LOC: LAB SHORT 14:30 → LAB 14:30
PROVIDERS: Physician Assistant Medical
DX: N39.0 Urinary tract infection, site not specified (principal)
CPT/HCPCS: 81003

== ENCOUNTER 2023-04-08 13:46 | Emergency (ER) | payer MEDICARE, OTHER ==
[~2023-04-08] VITALS: Ht 162.6 cm; Wt 70.3 kg
[2023-04-08 14:49] LABS: BASOPHILS ABSOLUTE AUTO 0.04 K/mm3 (0.00-0.23); BASOPHILS PERCENT AUTO 1 % (0-2); EOSINOPHILS ABSOLUTE AUTO 0.25 K/mm3 (0.00-0.68); EOSINOPHILS PERCENT AUTO 3 % (0-6); Hematocrit 36.9 % (33.0-51.0); Hemoglobin 12.6 g/dL (11.5-16.0); IMMATURE GRAN ABSOLUTE AUTO 0.04 K/mm3 (0.00-0.10); IMMATURE GRAN PERCENT AUTO 1 % (0-1); LYMPHOCYTES PERCENT AUTO 26 % (21-46); MONOCYTES ABSOLUTE AUTO 0.64 K/mm3 (0.16-1.47); MONOCYTES PERCENT AUTO 9 % (4-13); Mean Corpuscular HGB 29.4 pg (26.0-34.0); Mean Corpuscular HGB Conc 34.1 g/dL (31.5-36.5); Mean Corpuscular Volume 86 fL (80-100); Mean Platelet Volume 9.2 fL (9.1-12.4); NEUTROPHILS ABSOLUTE AUTO 4.54 K/mm3 (1.96-9.15); NEUTROPHILS PERCENT AUTO 61 % (41-73); Platelet Count 238 K/mm3 (150-400); RDW Coefficient Variation 12.4 % (11.7-14.2); RDW Standard Deviation 38.5 fL (35.1-46.3); Red Blood Cell Count 4.29 M/mm3 (3.80-5.20); White Blood Cell Count 7.41 K/mm3 (4.00-11.30)
[2023-04-08 15:07] LABS: International Normalized Ratio 0.97; Prothrombin Time Results 10.2 Sec (9.7-11.5)
[2023-04-08 15:11] LABS: Albumin, Blood 3.8 g/dL (3.4-5.0); Albumin/Globulin Ratio 0.9 (0.8-1.8); Bilirubin, Total 0.3 mg/dL (0.1-1.0); Bun/Creatinine Ratio 26.7 (12.0-20.0); Calcium, Blood 9.6 mg/dL (8.5-10.1); Creatinine, Blood 0.86 mg/dL (0.40-1.00); Globulin, Blood 4.4 g/dL (2.2-4.0); Total Protein, Blood 8.2 g/dL (6.4-8.2)
[2023-04-08 17:45] VITALS: BP 98/56
== END 2023-04-08 18:05 | disposition home or self-care (01) ==
LOC: ER 13:46
PROVIDERS: Emergency Medicine
DX: S00.03XA Contusion of scalp, initial encounter (principal); F03.90 Unspecified dementia, unspecified severity, without behavioral disturbance, psychotic disturbance, mood disturbance, and anxiety; K21.9 Gastro-esophageal reflux disease without esophagitis; I48.91 Unspecified atrial fibrillation; I10 Essential (primary) hypertension; F20.9 Schizophrenia, unspecified; Z79.82 Long term (current) use of aspirin; Z79.899 Other long term (current) drug therapy; Z88.5 Allergy status to narcotic agent; W18.11XA Fall from or off toilet without subsequent striking against object, initial encounter; Y92.192 Bathroom in other specified residential institution as the place of occurrence of the external cause
CPT/HCPCS: 70450; 80053; 85025; 85610; 99285-25

== ENCOUNTER 2023-10-03 21:40 | Emergency (ER) | payer MEDICARE, OTHER ==
[~2023-10-03] VITALS: Ht 162.6 cm; Wt 81.7 kg
[~2023-10-03 21:40] MED LIST changes: +CEFU500T30 PO; +NITR100CA PO
[2023-10-03 22:57] LABS: BASOPHILS ABSOLUTE AUTO 0.06 K/mm3 (0.00-0.23); BASOPHILS PERCENT AUTO 1 % (0-2); EOSINOPHILS ABSOLUTE AUTO 0.28 K/mm3 (0.00-0.68); EOSINOPHILS PERCENT AUTO 5 % (0-6); Hematocrit 36.4 % (33.0-51.0); Hemoglobin 12.2 g/dL (11.5-16.0); IMMATURE GRAN ABSOLUTE AUTO 0.02 K/mm3 (0.00-0.10); IMMATURE GRAN PERCENT AUTO 0 % (0-1); LYMPHOCYTES ABSOLUTE AUTO 3.05 K/mm3 (0.84-5.20); LYMPHOCYTES PERCENT AUTO 52 % (21-46); MONOCYTES PERCENT AUTO 9 % (4-13); Mean Corpuscular HGB 29.9 pg (26.0-34.0); Mean Corpuscular HGB Conc 33.5 g/dL (31.5-36.5); Mean Corpuscular Volume 89 fL (80-100); Mean Platelet Volume 9.4 fL (9.1-12.4); NEUTROPHILS ABSOLUTE AUTO 1.98 K/mm3 (1.96-9.15); NEUTROPHILS PERCENT AUTO 34 % (41-73); Platelet Count 230 K/mm3 (150-400); RDW Coefficient Variation 12.3 % (11.7-14.2); RDW Standard Deviation 39.9 fL (35.1-46.3); Red Blood Cell Count 4.08 M/mm3 (3.80-5.20); White Blood Cell Count 5.89 K/mm3 (4.00-11.30)
[2023-10-03] MEDS ORDERED: FAMO20 PO (23:10)
[2023-10-03] MEDS ORDERED: ZYPREXA ZYDIS15 MG PO (23:11)
[2023-10-03 23:12] LABS: Source, Urine Straight Cath
[2023-10-03 23:15] LABS: Bilirubin, Urine Neg (Neg); Blood, Urine Neg (Neg); Glucose Qualitative, Urine Neg (Neg); Ketones, Urine Neg (Neg); Leukocyte Esterase, Urine Neg (Neg); Nitrite, Urine Neg (Neg); Protein, Urine Neg (Neg); Urobilinogen, Urine NORM (Normal)
[2023-10-03 23:17] LABS: Albumin, Blood 3.2 g/dL (3.4-5.0); Albumin/Globulin Ratio 0.8 (0.8-1.8); Bilirubin, Total 0.3 mg/dL (0.1-1.0); Bun/Creatinine Ratio 23.1 (12.0-20.0); Calcium, Blood 8.8 mg/dL (8.5-10.1); Creatinine, Blood 0.74 mg/dL (0.40-1.00); Globulin, Blood 4.2 g/dL (2.2-4.0); Potassium, Blood 4.4 mmol/L (3.5-5.5); Thyroid Stimulating Hormone 5.05 uIU/mL (0.360-4.800); Total Protein, Blood 7.4 g/dL (6.4-8.2)
[2023-10-03 23:27] LABS: Appearance, Urine Clear (Clear); Color, Urine Yellow (P-Yellow)
[2023-10-04 03:00] VITALS: BP 135/75
== END 2023-10-04 04:26 | disposition home or self-care (01) ==
LOC: ER 21:40
PROVIDERS: Emergency Medicine
DX: R40.0 Somnolence (principal); T43.595A Adverse effect of other antipsychotics and neuroleptics, initial encounter; Z88.5 Allergy status to narcotic agent; Z79.899 Other long term (current) drug therapy; Z79.82 Long term (current) use of aspirin; F03.90 Unspecified dementia, unspecified severity, without behavioral disturbance, psychotic disturbance, mood disturbance, and anxiety; I48.91 Unspecified atrial fibrillation; K21.9 Gastro-esophageal reflux disease without esophagitis; I10 Essential (primary) hypertension
CPT/HCPCS: 51701; 70450; 71045; 72125; 72170; 80053; 81003; 82140; 83605; 84443; 85025; 93005; 93010; 99285-25

== ENCOUNTER 2023-11-17 09:18 | Emergency (ER) | payer MEDICARE, OTHER ==
[~2023-11-17] VITALS: Ht 167.6 cm; Wt 72.6 kg
[~2023-11-17 09:18] MED LIST changes: +FAMO20 PO; +ZYPREXA ZYDIS15 MG PO
[2023-11-17 10:24] LABS: BASOPHILS ABSOLUTE AUTO 0.03 K/mm3 (0.00-0.23); BASOPHILS PERCENT AUTO 1 % (0-2); EOSINOPHILS PERCENT AUTO 4 % (0-6); Hematocrit 39.9 % (33.0-51.0); Hemoglobin 13.5 g/dL (11.5-16.0); IMMATURE GRAN ABSOLUTE AUTO 0.02 K/mm3 (0.00-0.10); IMMATURE GRAN PERCENT AUTO 0 % (0-1); LYMPHOCYTES ABSOLUTE AUTO 1.72 K/mm3 (0.84-5.20); LYMPHOCYTES PERCENT AUTO 36 % (21-46); MONOCYTES PERCENT AUTO 8 % (4-13); Mean Corpuscular HGB 30.1 pg (26.0-34.0); Mean Corpuscular HGB Conc 33.8 g/dL (31.5-36.5); Mean Corpuscular Volume 89 fL (80-100); NEUTROPHILS ABSOLUTE AUTO 2.47 K/mm3 (1.96-9.15); NEUTROPHILS PERCENT AUTO 51 % (41-73); RDW Coefficient Variation 12.2 % (11.7-14.2); RDW Standard Deviation 39.5 fL (35.1-46.3); Red Blood Cell Count 4.48 M/mm3 (3.80-5.20); White Blood Cell Count 4.84 K/mm3 (4.00-11.30)
[2023-11-17 10:30] LABS: Mean Platelet Volume 10.2 fL (9.1-12.4)
[2023-11-17 10:41] LABS: Albumin, Blood 3.7 g/dL (3.4-5.0); Albumin/Globulin Ratio 0.8 (0.8-1.8); Bilirubin, Total 0.2 mg/dL (0.1-1.0); Bun/Creatinine Ratio 22.5 (12.0-20.0); Calcium, Blood 9.9 mg/dL (8.5-10.1); Creatinine, Blood 0.85 mg/dL (0.40-1.00); Globulin, Blood 4.4 g/dL (2.2-4.0); Magnesium, Blood 2.4 mg/dL (1.6-2.4); Phosphorus, Blood 3.4 mg/dL (2.5-4.9); Total Protein, Blood 8.1 g/dL (6.4-8.2)
[2023-11-17] MEDS ORDERED: NS 1,000 ML IV SCH (11:25)
[2023-11-17 11:40] LABS: International Normalized Ratio 0.97; Prothrombin Time Results 10.4 Sec (9.7-11.5)
[2023-11-17 12:42] LABS: Source, Urine Straight Cath
[2023-11-17 12:53] LABS: Bilirubin, Urine Neg (Neg); Blood, Urine 1+ (Neg); Glucose Qualitative, Urine Neg (Neg); Ketones, Urine Neg (Neg); Leukocyte Esterase, Urine 3+ (Neg); Nitrite, Urine Neg (Neg); Protein, Urine Neg (Neg); Urobilinogen, Urine NORM (Normal)
[2023-11-17 13:10] LABS: Appearance, Urine Hazy (Clear); Bacteria Few /hpf; Color, Urine Yellow (P-Yellow); Squamous Epithelial Cells Rare /hpf (Few); White Blood Cells, Urine 25-50 /hpf (0-5)
[2023-11-17 13:30] VITALS: BP 147/134
[2023-11-17] MEDS ORDERED: CefTRIAXone Sodium 2,000 MG in NS 100 ML IV ONE (13:40)
[2023-11-17] MEDS ORDERED: CEFD300 PO (13:55)
== END 2023-11-17 15:32 | disposition home or self-care (01) ==
LOC: ER 09:18
PROVIDERS: Student in an Organized Health Care Education/Training Program
DX: S05.11XA Contusion of eyeball and orbital tissues, right eye, initial encounter (principal); S00.03XA Contusion of scalp, initial encounter; S80.02XA Contusion of left knee, initial encounter; S80.01XA Contusion of right knee, initial encounter; N39.0 Urinary tract infection, site not specified; I48.91 Unspecified atrial fibrillation; I10 Essential (primary) hypertension; K21.9 Gastro-esophageal reflux disease without esophagitis; W18.30XA Fall on same level, unspecified, initial encounter; Z79.82 Long term (current) use of aspirin; Z79.899 Other long term (current) drug therapy; Z88.5 Allergy status to narcotic agent
CPT/HCPCS: 70450; 70486; 72125; 73502; 73560-LT; 73560-RT; 80053; 81001; 83735; 84100; 84484; 85025; 85610; 85730; J0696; J7030; P9612